=== PATIENT | female | born 1970 | race Caucasian/White ===

== ENCOUNTER 2018-03-26 14:59 | Outpatient (CLI) | payer BC | END 2018-03-26 15:00 | disposition home or self-care (01) | LOC: BICMAMMO 14:59 | PROVIDERS: ATTEND Obstetrics & Gynecology | DX: Z12.31 Encounter for screening mammogram for malignant neoplasm of breast (principal); Z80.3 Family history of malignant neoplasm of breast | CPT/HCPCS: 77063; 77067 ==

== ENCOUNTER 2020-07-13 11:58 | Outpatient (CLI) | payer BC ==
--- NOTE | 2020-07-13 12:59 | SJPRAD ---
EXAM: CHEST TWO VIEWS 07/13/2020 12:54 PM HISTORY: Cough for 3 days history of Covid testing COMPARISON: None. FINDINGS: Lungs: Airspace consolidation within the left lower lobe and left upper lobe suspicious for pneumoni a. Right lung is clear. Heart: Normal in size and contour. Pulmonary Vessels: Normal. Costophrenic Angles: Clear. Pneumothorax: None. Osseous Structures: Intact. Additional Findings: None. IMPRESSION: Airspace consolidation the left upper lobe and left lower lobe consistent with pneumonia. This is not a pattern typically seen with Covid pneumonia. This is a pattern commonly seen with community-acquired pneumonia.
== END 2020-07-13 11:59 | disposition home or self-care (01) ==
LOC: SCSRAD 11:58
PROVIDERS: ATTEND Nurse Practitioner Family
DX: R05 Cough (principal); J18.1 Lobar pneumonia, unspecified organism
CPT/HCPCS: 87635; U0003